=== PATIENT | male | born 1995 | race Caucasian/White ===

== ENCOUNTER 2018-03-20 12:28 | Emergency (ER) | payer SELFPAY | END 2018-03-20 12:35 | disposition left against medical advice (07) | LOC: ER 12:28 | DX: R52 Pain, unspecified (principal); Z53.21 Procedure and treatment not carried out due to patient leaving prior to being seen by health care provider ==

== ENCOUNTER 2018-05-23 23:13 | Emergency (ER) | payer SELFPAY ==
[~2018-05-23] VITALS: Ht 175.3 cm; Wt 65.8 kg
[2018-05-23 23:29] VITALS: BP 137/84
== END 2018-05-24 03:36 | disposition left against medical advice (07) ==
LOC: ER 23:18
DX: R51 Headache (principal); K08.89 Other specified disorders of teeth and supporting structures; Z53.21 Procedure and treatment not carried out due to patient leaving prior to being seen by health care provider
CPT/HCPCS: 70486